=== PATIENT | female | born 1985 | race Caucasian/White ===

== ENCOUNTER 2016-09-30 16:39 | Inpatient (IN) | payer SELFPAY ==
--- NOTE | 2016-09-30 16:48 | EDPHY ---
H & P Source: Patient HPI/ROS: 5:30 a.m.- The patient has been seen by the mental health worker Ewa. The plan is for placement at [address] [place] [address]. Pink is the accepting physician. I have completed the EMTALA form. At change of shift at 7:00 a.m., I anticipate the case will be signed out to the oncoming provider Dr. Varma. ([facility] [place]) CHIEF COMPLAINT: Paranoid, M1 HISTORY OF PRESENT ILLNESS: Patient arrives by EMS is with reports by EMS of paranoia. EMS reports that they were contacted by the patient's mother as she was not acting normal. The patient has not provided any information to them other than saying that she is scared. She will not provide any modifying factors or associated complaints. EMS reports that the patient's mother was concerned about eratic behavior and paranoia. EMS does not know if there are any substances that the patient has taken. She was not making any suicidal or homicidal claims, but she was not provide any reliable history either. No other way to obtain history at this time from the patient. Awaiting arrival for mother for further HPI. REVIEW OF SYSTEMS: Ten systems reviewed and are negative unless otherwise noted in the HPI PAST MEDICAL HISTORY: Unknown SOCIAL HISTORY: Unknown FAMILY HISTORY: Unknown EXAMINATION General Appearance: Alert, no distress. Anxious and fidgeting Head: normocephalic, atraumatic Eyes: Pupils are largely dilated at 8 mm. They are reactive symmetrically. ENT, Mouth: Mucous membranes moist. Airway widely patent. Neck: Normal inspection, supple, non-tender Respiratory: Lungs are clear to auscultation. No wheezing, rhonchi or crackles. Cardiovascular: Tachycardic rate and regular rhythm. No murmur. Pulses intact distally symmetrically Gastrointestinal: Abdomen is soft and nontender Back: non-tender, no bony abnormalities Neurological: Patient is opening her eyes spontaneously but will not follow commands enough for full neuro examination. She is moving all 4 extremities spontaneously. Skin: Warm and dry, no rash. There are well-healed, multiple skin cuts to both arms of various ages of chronicity Extremities: Nontender, no pedal edema Psychiatric: Reports being scared. She will not provide any further he answers to suicidal or homicidal ideation. She is fidgeting and anxious. DIFFERENTIAL DIAGNOSES: Including but not limited to paranoia, acute drug intoxication, sympathomimetic use, bipolar disorder, depression, anxiety MDM: 4:49 p.m. Paranoia in a patient who is on an M1 hold by [place] [employer]. She is not providing any information to me at this time. I am awaiting the arrival of her mother get further information. 6:35 p.m. Laboratory studies are negative thus far. We are still waiting for the patient to provide a urine sample for further analysis. 7:45 p.m. I have re-evaluated the patient. Her mother is now bedside. She reports that the patient has been acting abnormal, has been paranoid and she is concerned about the patient's well-being. She does not mention any suicidal ideation from the patient. No mention of any attempts to harm herself other than when she was a young teenager. This was done by cutting of both arms. 9:45 p.m. Patient has been medically cleared and is awaiting psychiatric evaluation. 11:50 p.m. Psychiatric evaluation is pending. I discussed the case with Dr. Wheat, and she will assume care of the patient at this time. Please see her note for final disposition SUPERVISION: Patient was evaluated in conjunction with the supervising physician. Please see their note for details. ([facility]) Constitutional: Initial Vital Signs Temperature (C) 98.4 F 09/30/16 16:46 Heart Rate 144 H 09/30/16 16:46 Respiratory Rate 18 09/30/16 16:46 Blood Pressure 150/84 H 09/30/16 16:46 O2 Sat (%) 98 09/30/16 16:46 O2 Delivery Mode Room Air Allergies/Adverse Reactions: Penicillins Allergy (Intermediate, Verified 02/07/12 14:17) Home Medications: Medication Instructions Recorded Miscellaneous Medical Supply [NO 1 ea MISC AD 02/07/12 HOME MEDS] Medical Decision Making Other Provider: I assumed care of the patient at 7 o'clock in the morning awaiting transfer to inpatient psychiatric. The patient was transferred to the inpatient psychiatric unit at [facility] at 8 a.m. (Richard Varma) - Data Points Laboratory Results: Laboratory Results 09/30/16 17:12 09/30/16 17:12 Medications Given: Discontinued Medications Lorazepam (Ativan) 1 mg PO ONCE ONE Stop: 10/01/16 16:01 Last Admin: 10/01/16 16:12 Dose: 1 mg Departure - Departure Disposition: [facility] IP Clinical Impression: Acute psychosis Condition: Fair
[2016-09-30 17:22] LABS: % IMMATURE GRANULYOCYTES 0.3 % (0.0-1.1); ABSOLUTE IMMATURE GRANULOCYTES 0.03 10^3/uL (0.00-0.10); ADD DIFF? NO; ADD MORPH? NO; ADD SCAN? NO; ATYPICAL LYMPHOCYTE FLAG 10 (0-99); FRAGMENT RBC FLAG 0 (0-99); HEMATOCRIT 46.3 % (38.0-47.0); HEMOGLOBIN 15.9 g/dL (12.6-16.3); LEFT SHIFT FLG 0 (0-99); LIPEMIA HEMOLYSIS FLAG 90 (0-99); MEAN CELL HEMOGLOBIN 31.9 pg (27.9-34.1); MEAN CELL HEMOGLOBIN CONCENTR. 34.3 g/dL (32.4-36.7); MEAN PLATELET VOLUME 9.8 fL (8.7-11.7); PLATELET CLUMPS FLAG 0 (0-99); PLATELET COUNT 311 10^3/uL (150-400); RED BLOOD CELL COUNT 4.98 10^6/uL (4.18-5.33); RED CELL DISTRIBUTION WIDTH 12.2 % (11.5-15.2)
[2016-09-30 17:42] LABS: ANION GAP 20 mEq/L (8-16); CARBON DIOXIDE 17 mEq/l (22-31); CHLORIDE 109 mEq/L (97-110); CREATININE 0.9 mg/dL (0.6-1.0); ETHANOL SERUM < 10 mg/dL (0-10); GLOMERULAR FILTRATION RATE > 60; GLUCOSE 93 mg/dL (70-100); POTASSIUM 4.2 mEq/L (3.5-5.2); SALICYLATE < 1.0 mg/dL (2.0-20.0); SODIUM 146 mEq/L (134-144)
[2016-09-30 17:53] LABS: LITHIUM < 0.2 mEq/L (0.6-1.2)
--- NOTE | 2016-09-30 18:17 | CPEKG ---
Heart Rate: 118 RR Interval: 508 P-R Interval: 93 QRSD Interval: 82 QT Interval: 304 QTC Interval: 427 P [place]: 73 QRS [place]: 4 T Wave [place]: 41 EKG Severity - OTHERWISE NORMAL ECG - EKG Impression: SINUS TACHYCARDIA Electronically Signed By: Shira Chan 30-Sep-2016 20:44:33
[2016-10-01] MEDS ORDERED: ACETAMINOPHEN 325 MG TAB PO PRN (11:44)
[2016-10-01] MEDS ORDERED: OLANZapine DISINTEGR 10 MG TAB PO PRN (11:44)
[2016-10-01] MEDS ORDERED: MAG HYDROX/AL HYDROX/SIMETH 30 ML UDCUP PO PRN (11:44)
[2016-10-01] MEDS ORDERED: NICOTINE POLACRILEX 2 MG GUM B PRN (11:44)
[2016-10-01] MEDS ORDERED: MAGNESIUM HYDROXIDE 30 ML UDCUP PO PRN (11:44)
[2016-10-01] MEDS: LORazepam 0.5 MG TAB PO PRN (13:11)
--- NOTE | 2016-10-01 13:29 | SOAPPROG ---
SOAP Progress Note Assessment/Plan: Assessment: Plan: 10/01/16 13:29 30 y/o with hx of substance use disorder and possible psychosis. Will obtain collateral information and monitor for now. Subjective: Pt seen, chart reviewed. She is laying in bed with sheet over her head. Is irritable and refuses to talk to me after several attempts. I told her to come and get me if she wants to talk. Objective: Vital Signs Temp Pulse Resp BP Pulse Ox 36.7 C 110 H 16 125/87 H 96 10/01/16 09:58 10/01/16 09:58 10/01/16 09:58 10/01/16 09:58 10/01/16 09:58 MSE: Guarded, hostile, uncoop. Affect is not seen. TP appears abbreviated. TC reveals possible paranoia. - Time Spent With Patient Time Spent With Patient: 15" - Pending Discharge Pending Discharge Within 24 Hours: No Pending Discharge Within 48 Hours: No ICD10 Worksheet Patient Problems: Problems Problem Status Onset Acute psychosis Acute
[2016-10-01] MEDS ORDERED: LORazepam 1 MG TAB PO ONE (16:00)
--- NOTE | 2016-10-02 01:25 | BCON ---
[f rep st] BEHAVIORAL HEALTH CONSULTATION INTERNAL MEDICINE CONSULTATION DATE OF CONSULTATION: 10/01/2016 REFERRING PHYSICIAN: Dr. Celestin REASON FOR CONSULTATION: Medical clearance for inpatient behavioral health stay. HISTORY OF PRESENT ILLNESS: This patient was admitted through the [facility] emergency department. She was brought in by ambulance. The ambulance had been called by the patient's mother as the patient was not acting normal. Mother was concerned about erratic behavior and paranoia. Currently, the patient has no acute medical complaints but repeatedly says "I'm scared," and "What's going on." PAST MEDICAL HISTORY: She has a history of cutting when she was an adolescent. Otherwise, mother is not aware of other past medical history, and the patient does not report any medical history or surgical history. MEDICATIONS: Prior to admission are unknown. ALLERGIES: There is an allergy listed to penicillins. SOCIAL HISTORY: Patient does not provide any social history. Per the [facility] evaluation, she is unemployed. She has lived in [place] [facility] [place] where she has friends. She is a nonsmoker and nondrinker. FAMILY HISTORY: Noncontributory. REVIEW OF SYSTEMS: Unable to be obtained as the patient does not respond to specific questions but continues to report "I'm scared" and "What's going on." PHYSICAL EXAMINATION: VITAL SIGNS: Blood pressure is 125/87, heart rate is 110 and has been as high as 144 yesterday afternoon, respiratory rate is 16, oxygen saturation is 96% on room air, temperature is 36.7 degrees centigrade. Her weight is 54.7 kg for a body mass index of 22. GENERAL: This is a well- nourished, well-developed woman, in moderate distress, somewhat unkempt and dressed in a green suicide smock. She is not cooperative. Her mother is present holding her hand. HEENT: Extraocular movements are intact. Pupils are equal, round, and reactive to light to light. Mucous membranes are moist. Dentition is in good condition. NECK: Supple. HEART: Regular rate and rhythm with no murmurs, rubs, or gallops. She is tachycardic. LUNGS: Clear to auscultation bilaterally. She was not cooperative with abdominal exam. NEUROLOGIC: She is alert. She appears to move all extremities with no apparent focal weakness. There is no tremor, and further neurologic exam could not be accomplished. LABORATORY DATA: Drawn in the emergency department, CBC was overall within normal limits. She had an increase in relative neutrophils at 77.3%, likely due to acute distress. Also, absolute neutrophils were slightly elevated at 7.01. Serum chemistry revealed a slightly elevated sodium at 146, a low CO2 at 17, giving her anion gap of 20. Renal function and electrolytes were otherwise within normal limits. Beta hCG was negative for . Toxicology screen in the serum was negative for salicylates, acetaminophen, ethyl alcohol, or lithium. Toxicology screen in the urine was negative for any substances of abuse. ASSESSMENT/RECOMMENDATIONS: 1. Mental health issues. Pending further evaluation and management per Psychiatry and the mental health team. 2. Tachycardia. Unclear whether this is driven purely by her emotional state versus possible substance withdrawal. She does not have the stigmata of chronic alcohol abuse or injection drug abuse. Query whether there might have been a substance ingestion which does not show on the urine drug screen. If this was the case, would expect that acute effects are resolving as it is approximately 21 hours since she initially presented at the emergency department. Recommend observing vital signs for continued tachycardia as she receives psychiatric medications and as her psychiatric state improves. EKG done in the emergency department showed sinus tachycardia, so there is no pathologic rhythm involved. I see no medical contraindications to this patient's continued stay on the inpatient behavioral health unit or to any psychiatric medications or procedures. Thank you very much for including me in the care of this patient, and please do not hesitate to contact me or the hospitalist service should there be need for further medical evaluation. /[id number]/MODL MTDD
--- NOTE | 2016-10-02 17:32 | BAPA ---
[f rep st] ADMISSION PSYCHIATRIC ASSESSMENT DATE OF SERVICE: 10/01/2016 DATES OF EVALUATION: 10/01/2016 and 10/02/2016. REASON FOR ADMISSION: Patient is a 30-year-old female who was admitted from the emergency department on an M1 hold following a possible overdose on medication. The patient offered no infor mation in the emergency department though was reported by the M1 hold to have told authorities she w as being stalked and they felt like she was paranoid. The patient's mother gave additional informat ion that the patient had appeared to be confused and her mother was concerned that she might be into xicated. She has had a previous hospitalization due to paranoia and confusion related to marijuana use. She also has a history where a high school counselor may have thought she was schizophrenic. I attempted to meet with the patient yesterday and she was completely nonconversant and unwilling to talk. Today, she says several short sentences such as, "I am afraid" and "I'm really sleepy." She had been given Zyprexa and Ativan in the last 12 hours and has slept consistently for at least 14 h ours. No additional information is able to be obtained from the patient today as she continues to b e uncooperative and sleepy. PAST PSYCHIATRIC HISTORY: Largely unknown. There is apparently the previous diagnosis of some form of psychosis or paranoia. She is not currently under any active mental health treatments. She has a history of kvwi-cqg-gozonzs drug use including having taken a number of Benadryl on 1 occasion, c ausing her to have to go to the hospital. It is unclear whether this was a suicide attempt. She conrad s a history of cutting as an adolescent but is not currently doing that. Physical examination notes that she has numerous well-healed scars over both forearms. She has not reportedly had any previou s psychiatric hospitalizations. ALLERGIES: Penicillin. CURRENT MEDICATIONS: None. PAST MEDICAL HISTORY: Largely unknown though the documents from the emergency department, Dr. Cody contreras's evaluation, indicate that her mother has reported no significant past medical or surgical histor y. SOCIAL HISTORY: The patient is reportedly unemployed. Her current living circumstance is unknown t ariana she was recently living in [place] with friends. Her mother is her primary support who lives locally. The patient's mother reported that she does not believe the patient uses drugs thoug h there is a history of the over the counter Benadryl and then also marijuana in the past. FAMILY HISTORY: Significant for alcoholism on her father's side and a suicide on her father's side, though exactly who this is is unclear. ADMISSION LABORATORY: CBC shows no significant abnormalities. Serum chemistry shows sodium up at 1 46. Anion gap up at 20. Beta hCG is negative. Urine drug screen is negative for all substances an d alcohol was less than detectable. MENTAL STATUS EXAMINATION: Reveals a disheveled female lying in a hospital bed. She repe atedly refuses to get out of bed or interact. She prefers to keep the sheet of the bed pulled over her head. She will murmur softly brief statements such as, "I am afraid." She is unwilling to answ er questions in regard to orientation though does respond to questions and does not appear to be del irious or intoxicated. It is unclear whether she is experiencing any paranoia though she is very gu arded and withdrawn. She will not answer questions in regard to suicidality. IMPRESSION: Possible acute psychotic disorder. There does not appear to be active delirium though it is difficult to fully assess her. She was medically cleared in the emergency department and her labs are normal. Her urine drug screen shows no substances of abuse though it is possible she could have taken some iyek-sox-tvsfxir medications which is also unclear. PLAN: 1. At this time, we will continue to observe her. She is on a one-to-one due to her previous histo ry of self-harming and statements she made when she arrived that she would not be safe on the unit. She has not been able to recant these of as of this moment. 2. Admit to behavior health services inpatient unit on an M1 hold. 3. Continue to provide serial clinical interviews and clarify diagnosis. 4. Provide p.r.n. Zyprexa and Ativan for paranoia or agitation. 5. Estimated length of stay 5-7 days. /[id number]/MODL
[2016-10-03] MEDS: ONDANSETRON DISINTEGRATING 4 MG TAB PO PRN (10:53)
--- NOTE | 2016-10-03 15:17 | SOAPPROG ---
SOROSALIND Progress Note Assessment/Plan: Assessment: Plan: 10/01/16 13:29 30 y/o with hx of substance use disorder and possible psychosis. Will obtain collateral information and monitor for now. 10/03/16 15:18 Remains guarded, delayed. Does not appear delirious. Primary differential is character/volitional v. psychosis. Very sensitive to meds. Will minimize meds at this time to allow for accurate clinical observation. Will place on [facility] due to grave disability and possible SI. I explained to her that the path to becoming a voluntary patient or d/c'ing from the hospital is to participate in clinical interviews and therapeutic activities and demonstrate normalized thinking and processing with no SI. Subjective: Pt seen, discussed with staff. Awake, though minimally interactive. Unable or unwilling to answer most questions. States she is "afraid" and "really tired." Unsteady on her feet with notable orthostasis. Eating and drinking Gatorade. Offers no c/o's though does say, "I want to go home." Objective: Vital Signs Temp Pulse Resp BP Pulse Ox 36.6 C 82 19 112/66 98 10/03/16 06:00 10/03/16 06:00 10/03/16 06:00 10/03/16 06:00 10/03/16 06:00 MSE: Anxious, guarded. Notable psychomotor retardation. Affect is blunted, stable. Mood is "scared." Ten to thirty second delay in answering questions and only offers one to two word answers when she does. Appears internally preoccupied. Does not answer questions re: perceptual disturbances. - Time Spent With Patient Time Spent With Patient: 15" - Pending Discharge Pending Discharge Within 24 Hours: No Pending Discharge Within 48 Hours: No ICD10 Worksheet Patient Problems: Problems Problem Status Onset Acute psychosis Acute
--- NOTE | 2016-10-04 15:26 | SOAPPROG ---
SOAP Progress Note Assessment/Plan: Assessment: Plan: 10/04/16 15:23 Patient does not appear to have evidence of psychosis. Patient has not been very forthcoming, she declines to answer most questions or just stares at interviewer despite repeating questions. However, she does seem able to express herself in other situations, ie requesting something to drink and asking for grilled cheese sandwich and talking to [employer] health tech after MD leaves the room. So it's unclear whether or not her lack of responsiveness is volition or s/s of psychosis. When asked by RN, she denied any thoughts of wanting to harm herself or others. Will attempt to obtain more information from MOC and family. No indication for meds at current time. Subjective: MD attempted to interview patient in her room with sitter present. Patient had greatly increased response latency and would often stare at MD while questions were repeated. She did says she felt "dizzy" and had upset stomach like she "might throw up." However, she has not had any vomiting since admission. She initially refused food and had little fluids, but today ate a grilled cheese sandwich and drank 500cc's of water this at noontime. She c/o dizziness and unsteady gait, however, when [facility] walked with patient this afternoon, she was able to ambulate without assistance. She denies AH/VH, SI/HI. Objective: Vital Signs Temp Pulse Resp BP Pulse Ox 36.5 C 95 14 129/74 H 98 10/04/16 06:00 10/04/16 06:00 10/04/16 06:00 10/04/16 06:00 10/04/16 06:00 MSE: Patient wrapped in blanket, seated on bed. She has apparent thought blocking and response latency. Affect: blunted Mood: No response TP: unable to assess TC: denies AH/VH, SI/HI - Pending Discharge Pending Discharge Within 24 Hours: No ICD10 Worksheet Patient Problems: Problems Problem Status Onset Acute psychosis Acute
[2016-10-04] MEDS ORDERED: OLANZapine DISINTEGR 10 MG TAB PO PRN (15:31)
[2016-10-05] MEDS: LORazepam 0.5 MG TAB PO PRN (01:36)
[2016-10-05] MEDS: ONDANSETRON DISINTEGRATING 4 MG TAB PO PRN ×2 (15:14→22:55)
--- NOTE | 2016-10-05 16:42 | SOAPPROG ---
SOAP Progress Note Assessment/Plan: Assessment: 10/05/16 Based on information provided by MOC and documented in CC's note, there does seem to be evidence of recurrent bouts of depression starting in adolescence and most recently after patient's abrupt departure from previous job at [employer] in 03/2016. MOC says patient also had brief psychotic episode after using THC in [place] in 04/2016. She was hospitalized for <24 hrs, and was not discharged on any meds. There does not seem to be any previous or subsequent evidence of psychotic sxs based on collateral info from MOC. Patient does seem to have h/o depression and one prior SA by OD on ASA as adolescent. MOC reports decreased appetite, insomnia, feelings of hopelessness, sadness and guilt present over past few weeks. [facility] [place] patient reported to her that she does not feel she is "living up to her potential." Plan: 10/04/16 15:23 Patient does not appear to have evidence of psychosis. Patient has not been very forthcoming, she declines to answer most questions or just stares at interviewer despite repeating questions. However, she does seem able to express herself in other situations, ie requesting something to drink and asking for grilled cheese sandwich and talking to [employer] health tech after MD leaves the room. So it's unclear whether or not her lack of responsiveness is volition or s/s of psychosis. When asked by RN, she denied any thoughts of wanting to harm herself or others. Will attempt to obtain more information from MOC and family. No indication for meds at current time. 10/05/16 16:28 Plan: 1. Have recommended Zoloft or similar type of antidepressant medication to address patient's depression. However, patient does not respond when MD attempts to get consent to start medication tx. 2. MD has some concern about catatonia, but patient is able to ambulate and make volitional movements. She has decreased appetite and food intake, but is capable of using fork, spoon and drinking from water bottle and milk. Her paucity of speech and lack of responsiveness to questions, therefore, seem intentional rather than d/t cognitive impairment, delirium, or psychosis. Her psychomotor retardation is most likely related to depression. 3. Recommend individual and group therapy be part of aftercare plan. Subjective: Patient seated in dining room at table with lunch tray. She slept 10+ hours last night. MD comments that patient has not touched her lunch and inquires about her appetite. Patient initially does not make eye contact or respond to MD 's questions. Finally, she puts lid back on her food and says, "I'm done." She does drink her milk and some water, but otherwise does not eat any food. MD tries to talk to patient about her mood and recommends starting antidepressant medication while patient is in hospital based on [facility] report of persistence of depressive sxs over past several weeks and possibly several months. Patient does not respond or answer MD's questions. Objective: Vital Signs Temp Pulse Resp BP Pulse Ox 36.4 C 71 12 136/73 H 97 10/05/16 06:00 10/05/16 06:00 10/05/16 06:00 10/05/16 06:00 10/05/16 06:00 MSE: Guarded, uncooperative, lack of engagement. Affect: Flat Mood: No response TP: Unable to assess TC: Unable to assess - Time Spent With Patient Time Spent With Patient: 15" - Pending Discharge Pending Discharge Within 24 Hours: No ICD10 Worksheet Patient Problems: Problems Problem Status Onset Major depressive disorder, recurrent episode, severe Acute - ICD10 Problem Qualifiers (1) Acute psychosis (2) Major depressive disorder, recurrent episode, severe Qualifiers: Psychotic features: P
[2016-10-06] MEDS: ONDANSETRON DISINTEGRATING 4 MG TAB PO PRN (08:27)
--- NOTE | 2016-10-07 08:53 | SOAPPROG ---
SOAP Progress Note Assessment/Plan: Assessment: Plan: 10/01/16 13:29 30 y/o with hx of substance use disorder and possible psychosis. Will obtain collateral information and monitor for now. 10/03/16 15:18 Remains guarded, delayed. Does not appear delirious. Primary differential is character/volitional v. psychosis. Very sensitive to meds. Will minimize meds at this time to allow for accurate clinical observation. Will place on ST due to grave disability and possible SI. I explained to her that the path to becoming a voluntary patient or d/c'ing from the hospital is to participate in clinical interviews and therapeutic activities and demonstrate normalized thinking and processing with no SI. 10/07/16 08:53 Overall clinical picture remains unclear. Will continue to observe in controlled, supportive environment, schedule a family meeting with pt's BF. Subjective: LATE ENTRY FOR 10/06/16 Pt seen, discussed with staff, chart reviewed. She is more interactive, but not very able to comprehend plan. She repeated asks why she is here and states she doesn't remember anything from the time around her admission to a day or two ago. She struggles to understand her care plan and is hesitant to sign an AIYANA for her BF in order to do d/c planning. She cannot explain what the hesitation is, however. She is eating and drinking better. Continues to c/o "feeling dizzy." Objective: Vital Signs Temp Pulse Resp BP Pulse Ox 36.6 C 64 16 114/63 99 10/07/16 06:00 10/07/16 06:00 10/07/16 06:00 10/07/16 06:00 10/07/16 06:00 MSE: Adequately groomed, guarded. Affect is blunted, stable. Mood is " freaked out." TP disorganized with possible blocking. TC reveals no overt psychosis. A&Ox2 with poor effort. - Time Spent With Patient Time Spent With Patient: 25" ICD10 Worksheet Patient Problems: Problems Problem Status Onset Major depressive disorder, recurrent episode, severe Acute
--- NOTE | 2016-10-07 21:51 | SOAPPROG ---
SOAP Progress Note Assessment/Plan: Assessment: Plan: 10/01/16 13:29 30 y/o with hx of substance use disorder and possible psychosis. Will obtain collateral information and monitor for now. 10/03/16 15:18 Remains guarded, delayed. Does not appear delirious. Primary differential is character/volitional v. psychosis. Very sensitive to meds. Will minimize meds at this time to allow for accurate clinical observation. Will place on [facility] due to grave disability and possible SI. I explained to her that the path to becoming a voluntary patient or d/c'ing from the hospital is to participate in clinical interviews and therapeutic activities and demonstrate normalized thinking and processing with no SI. 10/07/16 08:53 Overall clinical picture remains unclear. Will continue to observe in controlled, supportive environment, schedule a family meeting with pt's BF. 10/07/16 21:51 Remains odd, idiosyncratic, internally preoccupied. I have to believe she is psychotic at this point. I have recommended that she take risperdone and she is resistant to this stating "I don't take drugs." I remind her that this is not the truth and she would potentially benefit from medication treatment to help organize her thinking. I attempted to discuss the risks, benefits and alternatives of risperdone and she declines. Subjective: Pt seen, discussed with staff. Interviewed with CC present to review plan of care and d/c scenarios. She continues to struggle to actively participate in discussions. Replies to most questions with autonomous statements such as: "That's so fucked up" or "I cant remember anything" or "I'm just here because I was dizzy" or "You guys are crazy, why are you holding me here?" Continues to demonstrate no insight into illness or circumstance surrounding admission. Cannot answer simple questions or consent to visitation from BF or family. Objective: Vital Signs Temp Pulse Resp BP Pulse Ox 36.6 C 64 16 114/63 99 10/07/16 06:00 10/07/16 06:00 10/07/16 06:00 10/07/16 06:00 10/07/16 06:00 MSE: Calm, though guarded. Affect is constricted with frequent inappropriate smiles. Mood is "fine." TP disorganized. TC reveals paranoia towards staff with belief that we are acting against her and that she is in intermediate. - Time Spent With Patient Time Spent With Patient: 25" - Pending Discharge Pending Discharge Within 24 Hours: No Pending Discharge Within 48 Hours: No ICD10 Worksheet Patient Problems: Problems Problem Status Onset Major depressive disorder, recurrent episode, severe Acute
[2016-10-07] MEDS: risperiDONE 1 MG TAB PO SCH (22:05)
[2016-10-08] MEDS: risperiDONE 1 MG TAB PO SCH (21:26)
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
[2016-10-09] MEDS: risperiDONE 1 MG TAB PO SCH (20:05)
[2016-10-10 06:18] VITALS: BP 101/55; PULSE 66; RESP 15; TEMP 98.1; O2SAT 97
== END 2016-10-10 11:15 | disposition home or self-care (01) | DRG 885 ==
LOC: EDUNIT# → BBEH 10-01 08:35 → F3E 10-01 17:30 → BBEH 10-01 17:30 → F3E 10-09 15:47 → BBEH 10-09 15:47
PROVIDERS: ADMIT Psychiatry & Neurology Psychiatry; ATTEND Psychiatry & Neurology Psychiatry
DX: F29 Unspecified psychosis not due to a substance or known physiological condition (principal); R00.0 Tachycardia, unspecified
CPT/HCPCS: 80305; G0480